=== PATIENT | male | born 1960 | race Caucasian/White ===

== ENCOUNTER 2022-09-11 09:32 | Outpatient (CLI) | payer OTHER, SELFPAY | END 2022-09-11 09:33 | disposition home or self-care (01) | LOC: NFLDREF 09-12 07:05 | PROVIDERS: PCP Physician Assistant Medical; Referring Provider Physician Assistant Medical; Visit Provider Physician Assistant Medical | DX: Z00.00 Encounter for general adult medical examination without abnormal findings (principal) | CPT/HCPCS: 80053; 80061; 84153; 84443 ==

== ENCOUNTER 2024-10-13 08:45 | Outpatient (RCR) | payer MEDICARE, SELFPAY ==
[2024-10-13] VITALS (7 sets, daily range): BP systolic 101–110; BP diastolic 55–65; PULSE 75–87; RESP 16–18; TEMP 36.3–36.6; O2SAT 94–97
== END 2025-04-09 23:59 | disposition home or self-care (01) ==
LOC: CCIC 08:45
PROVIDERS: PCP Physician Assistant Medical; Visit Provider Internal Medicine Hematology & Oncology
DX: C91.10 Chronic lymphocytic leukemia of B-cell type not having achieved remission (principal); D63.0 Anemia in neoplastic disease
CPT/HCPCS: 36415; 36430; 86850; 86860; 86870; 86880; 86900; 86901; 86904; 86905; 86906; 86920; 86922; 86970; 86978; P9016

== ENCOUNTER 2024-12-18 14:05 | Outpatient (CLI) | payer MEDICARE, SELFPAY | END 2024-12-18 14:06 | disposition home or self-care (01) | LOC: NFLDREF 12-20 03:06 | PROVIDERS: PCP Physician Assistant Medical; Referring Provider Physician Assistant Medical; Visit Provider Physician Assistant Medical | DX: Z12.5 Encounter for screening for malignant neoplasm of prostate (principal) | CPT/HCPCS: G0103 ==